=== PATIENT | female | born 1985 | race Caucasian/White ===

== ENCOUNTER 2019-03-21 03:38 | Inpatient (IN) | payer MEDICARE, OTHER ==
[~2019-03-21] VITALS: Ht 160 cm; Wt 96.3 kg
[~2019-03-21 03:38] MED LIST: PREN1TAB13 PO
[2019-03-21 19:53] VITALS: Ht 160 cm; Wt 96.3 kg
[2019-03-21 20:02] VITALS: BP 129/61; PULSE 68; RESP 16
[2019-03-21] MEDS ORDERED: FENTAnyl 50 MCG/ML VIAL IV PRN (21:00)
[2019-03-21] MEDS ORDERED: IBUPROFEN 600 MG TAB PO PRN (21:00)
[2019-03-21] MEDS ORDERED: OXYCODONE/ASPIRIN (4.88/325) TAB PO PRN (21:00)
[2019-03-21] MEDS ORDERED: BUTORPHANOL 2 MG INJ IV PRN (21:00)
[2019-03-21] MEDS ORDERED: OXYTOCIN 30 UNITS/LR 500 ML IV SCH ×3 (21:00)
[2019-03-21] MEDS ORDERED: OXYTOCIN 30 UNITS/LR 500 ML IV PRN (21:00)
[2019-03-21] MEDS ORDERED: CARBOPROST 250 MCG INJ IM PRN (21:00)
[2019-03-21] MEDS ORDERED: LIDOCAINE 1% (MPF) 30 ML INJ INJ PRN (21:00)
[2019-03-21] MEDS ORDERED: MISOPROSTOL 200 MCG TAB PR PRN (21:00)
[2019-03-21] MEDS ORDERED: METHYLERGONOVINE 0.2 MG INJ IM PRN (21:00)
[2019-03-21] MEDS ORDERED: NICOTINE (7 MG/24 HR) PATCH TRANSDERM PRN (21:00)
[2019-03-21] MEDS ORDERED: MISOPROSTOL 50 MCG CAPSULE VAG ONE (21:00)
[2019-03-21] MEDS: LACTATED RINGER'S 1,000 ML IV SCH (21:03)
[2019-03-21] MEDS: MISOPROSTOL 50 MCG CAPSULE PO SCH (21:53)
[2019-03-22] MEDS: LACTATED RINGER'S 1,000 ML IV SCH ×3 (00:12→10:02)
[2019-03-22] MEDS ORDERED: MISOPROSTOL 50 MCG CAPSULE PO SCH (01:00)
[2019-03-22] MEDS: MISOPROSTOL 50 MCG CAPSULE PO SCH ×3 (01:54→19:00)
--- NOTE | 2019-03-22 08:31 | PN ---
Date/Time of Note Date/Time of Note DATE: 03/22/19 TIME: 08:29 OB Subjective Subjective Subjective Patient without complaints 129/61 hr 83 h/h 10.4/32.4 sve 4/50/-1 mid/med electronic monitor: Category 2 140s/moderate variability/positive accelerations/intermittent variable decelerations Newberg every 3 minutes IOL- Continue with induction of labor Suspected rupture of membranes Bower score 7patient received a miso last ~ 0200 Monitor for labor dystocia Start Pitocin in 4 hours prn Anesthesia upon patient request MAURO DÍAZ MD Mar 22, 2019 08:31
[2019-03-22] MEDS ORDERED: FERROUS SULFATE (EC) 325 MG TAB PO ONE (09:00)
[2019-03-22] MEDS ORDERED: OXYTOCIN 30 UNITS/LR 500 ML IV SCH (13:19)
--- NOTE | 2019-03-22 13:19 | LDN ---
Date/Time of Note Date/Time of Note DATE: 03/22/19 TIME: 13:18 Delivery Summary Spontaneous vaginal delivery of a viable term female in OA presentation. Nuchal cord x 2 easily reduced. Body cord x 1 reduced. Mouth and nares bulb suctioned. Cord clamped x2 and divided between after one minute. Infant placed on mother's abdomen. Cord blood collected. Placenta delivered spontaneously, intact with three vessel cord. Perineum inspected and no lacerations were noted. Hemostasis noted. Fundus firm. The cervix was intact. weight 3450 g Apgars 8/9 Estimated blood loss 400 ml MAURO DÍAZ MD Mar 22, 2019 13:19
[2019-03-22] MEDS ORDERED: OXYTOCIN 30 UNITS/LR 500 ML IV PRN (13:30)
[2019-03-22] MEDS ORDERED: LANOLIN HPA 1 PKT TOP PRN (13:30)
[2019-03-22] MEDS ORDERED: MISOPROSTOL 200 MCG TAB PR PRN (13:30)
[2019-03-22] MEDS ORDERED: NACL 0.9% 3 ML SYG IV SCH (13:30)
[2019-03-22] MEDS ORDERED: ACETAMINOPHEN 325 MG TAB PO PRN (13:30)
[2019-03-22] MEDS ORDERED: CARBOPROST 250 MCG INJ IM PRN (13:30)
[2019-03-22] MEDS ORDERED: BENZOCAINE 20% 56 ML SPRAY TOP PRN ×2 (13:30)
[2019-03-22] MEDS ORDERED: MAGNESIUM HYDROXIDE 30ML CUP PO PRN (13:30)
[2019-03-22] MEDS ORDERED: ONDANSETRON 4 MG INJ IV PRN (13:30)
[2019-03-22] MEDS ORDERED: HYDROCODONE/APAP (5/325) TAB PO PRN (13:30)
[2019-03-22] MEDS ORDERED: ZOLPIDEM 5 MG TAB PO PRN (13:30)
[2019-03-22] MEDS ORDERED: WITCH HAZEL/GLYCERIN PAD PR PRN (13:30)
[2019-03-22] MEDS ORDERED: METHYLERGONOVINE 0.2 MG INJ IM PRN (13:30)
[2019-03-22] MEDS ORDERED: DIPHENHYDRAMINE 25 MG CAP PO PRN (13:30)
[2019-03-22 14:45] VITALS: BP 127/63; PULSE 59; RESP 17
[2019-03-22 15:45] VITALS: BP 139/58; PULSE 64; RESP 18
[2019-03-22 16:45] VITALS: BP 119/58; PULSE 68; RESP 18
[2019-03-22] MEDS: IBUPROFEN 600 MG TAB PO SCH ×2 (17:22→23:37)
[2019-03-22 20:00] VITALS: BP 136/60; PULSE 66; RESP 18
[2019-03-22 23:56] VITALS: BP 102/54; PULSE 62; RESP 18
[2019-03-23] MEDS: LACTATED RINGER'S 1,000 ML IV SCH ×3 (03:34→20:51)
[2019-03-23 04:00] VITALS: BP 122/55; PULSE 57; RESP 18
[2019-03-23] MEDS: IBUPROFEN 600 MG TAB PO SCH ×4 (05:34→19:29)
[2019-03-23 08:00] VITALS: BP 123/57; PULSE 65; RESP 18
[2019-03-23] MEDS: SENNA/DOCUSATE NA (8.6MG/50MG) TAB PO PRN (08:49)
[2019-03-23 12:00] VITALS: BP 114/54; PULSE 65; RESP 16
[2019-03-23 18:15] VITALS: BP 124/58; PULSE 65; RESP 18
--- NOTE | 2019-03-23 19:10 | PN ---
Date/Time of Note Date/Time of Note DATE: 03/23/19 TIME: 19:09 OB Subjective Subjective Subjective PPD# 1 Patient is doing well. She denies nausea, vomiting, shortness of breath, chest pain, headache. She has been ambulating without difficulty, tolerating regular diet. Pain is well controlled on current medications OB Objective Objective Objective VS - Last 72 Hours, by Label Date Temp Pulse Resp B/P (MAP) Pulse Ox O2 O2 Flow FiO2 Time Delivery Rate 03/23/19 98.1 65 18 124/58 18:15 (80) 03/23/19 98.2 65 16 114/54 Room Air 12:00 (74) 03/23/19 97.9 65 18 123/57 Room Air 08:00 (79) 03/23/19 98.2 57 18 122/55 Room Air 04:00 (77) 03/22/19 97.7 62 18 102/54 Room Air 23:56 (70) 03/22/19 98.3 66 18 136/60 Room Air 20:00 (85) 03/22/19 98.3 68 18 119/58 Room Air 16:45 (78) 03/22/19 98.3 64 18 139/58 Room Air 15:45 (85) 03/22/19 98.7 59 17 127/63 Room Air 14:45 (84) 03/21/19 98.5 68 16 129/61 Room Air 20:02 (83) General: AAO X 3, comfortable, NAD, appropriate mood and affect. ABD: +BS. Soft, non-tender. Uterus 2 cm below umbilicus Flank: No CVA tenderness (B/L) LE: Mild edema. No clubbing, cyanosis, thigh or calf tenderness (B/L). Homans 'sign is negative OB Assessment/Plan Other plan: 33 years old -0-1-4 s/p normal vaginal delivery at 40 weeks and 3 days. PPD#1 - AF, VSS - Baby is doing well, at bed side. She is bonding well - Contraception methods with R/B/A/FR discussed - Continue care - Discharge home tomorrow - Rx and instruction given - Follow up in 2 and 6 weeks at clinic JEAN KAM Mar 23, 2019 19:10
[2019-03-23 20:00] VITALS: BP 129/69; PULSE 67; RESP 16
[2019-03-24] MEDS: SENNA/DOCUSATE NA (8.6MG/50MG) TAB PO PRN ×2 (00:55→09:15)
[2019-03-24 04:00] VITALS: BP 99/56; PULSE 65; RESP 18
[2019-03-24] MEDS: LACTATED RINGER'S 1,000 ML IV SCH (04:51)
[2019-03-24] MEDS: IBUPROFEN 600 MG TAB PO SCH ×3 (06:00→09:15)
[2019-03-24 08:00] VITALS: BP 122/68; PULSE 56; RESP 18
[2019-03-24] MEDS ORDERED: MEASLES,MUMPS,RUBELLA VACCINE INJ SC* ONE (09:00)
[2019-03-24] MEDS ORDERED: DIPHTH/TET/ACEL PERTUSS (ADULT) 0.5 ML VIAL IM* ONE (09:00)
--- NOTE | 2019-03-24 13:11 | HP ---
Date/Time of Note Date/Time of Note DATE: 03/24/19 TIME: 13:11 OB - History Hx of Present Free Text/Dictation updated h&p unchanged Past Family/Social History * Past Medical, Surgical, Family and Obstetric Histories reviewed from chart. OB Admission Exam Vital Signs Vital Signs Vital Signs Date Temp Pulse Resp B/P (MAP) Pulse Ox O2 O2 Flow FiO2 Time Delivery Rate 03/24/19 98.0 56 18 122/68 Room Air 08:00 (86) Last 72 hours Lab Results CBC & BMP 03/21/19 20:30 03/23/19 07:50 MAURO DÍAZ MD Mar 24, 2019 13:11
--- NOTE | 2019-03-24 13:17 | DS ---
Date/Time of Note Date/Time of Note DATE: 03/24/19 TIME: 13:16 Obstetrical Discharge Record Final Diagnosis Final Diagnosis: Term delivered Other Final Diagnosis 33 years old -0-1-4 s/p normal vaginal delivery at 40 weeks and 3 days. PPD#2. course this was unremarkable. She is ambulating and tolerating regular diet. She is voiding without difficulty. She had bowel movement. Pain is controlled on current medication - AF, VSS - Baby is doing well, at bed side. She is bonding well - Contraception methods with R/B/A/FR discussed - Continue care - Discharge home - Rx and instruction given - Follow up in 2 and 6 weeks at clinic Vaginal Delivery Obstetrical Delivery: Spontaneous Complications Induction: Yes (Postdate) Condition on Discharge Physical Assessment Last Vitals: v Vital Signs Date Temp Pulse Resp B/P (MAP) Pulse Ox O2 O2 Flow FiO2 Time Delivery Rate 03/24/19 98.0 56 18 122/68 Room Air 08:00 (86) Voiding: Yes Bowel Movement: Yes Breast: Soft, non-tender Fundus: Firm Calf Tenderness: No Patient Condition: Stable JEAN KAM Mar 24, 2019 13:17
--- NOTE | 2019-03-24 13:21 | HP ---
Date/Time of Note Date/Time of Note DATE: 03/24/19 TIME: 13:18 OB - History Hx of Present Free Text/Dictation Late entry note. Patient admitted on 03/22/2019 33 years old -0-1-4 with single intrauterine at 40 weeks and 3 days complaining of uterine contractions. She states good movement. She denies nausea, vomiting, shortness of breath, chest pain, headache, visual changes, vaginal bleeding or LOF. Chief Complaint: uterine contractions Estimated Due Date: Mar 19, 2019 : 6 Para: 4 Spontaneous : 1 Therapeutic : 0 Care: Good Care Ultrasounds: Normal mid trimester US Obstetrical Complications: None Medical Complications: None Past Family/Social History * Past Medical, Surgical, Family and Obstetric Histories reviewed from chart. OB Admission Exam Vital Signs Vital Signs Vital Signs Date Temp Pulse Resp B/P (MAP) Pulse Ox O2 O2 Flow FiO2 Time Delivery Rate 03/24/19 98.0 56 18 122/68 Room Air 08:00 (86) Physical Exam HEENT: WNL Heart: Rhythm Normal Lungs: Clear Abdomen: WNL Extremities: Normal Cervical Dilatation: 2cm Effacement: 50% Station: -3 Membranes: Intact Heart Rate: 130's Accelerations: Accelerations Present Decelerations: No Decelerations Varibility: Moderate Contractions on Admission: 6-10 Minutes Apart Intensity: Mild Last 72 hours Lab Results CBC & BMP 03/21/19 20:30 03/23/19 07:50 OB Assessment/Plan Other plan: 33 years old -0-1-4 at 40 weeks and 3 days -FHR: No sign of metabolic acidosis- Category I -Continuous EFM, toco -CBC, blood type and screen -Analgesia options with R/B/A discussed in detail with patient -Epidural per patient request -Please see the orders Admission, procedures, expectations, risks and possible complications have been discussed in detail with the patient. Risk of vaginal delivery including but not limited to bleeding, infection, cervical laceration, placental retention, injury to fetus, blood transfusion, blood transfusion related infection, risk of anesthesia, adhesion, cervical laceration, episiotomy/laceration, possible delivery with risk of bleeding, infection, injury to other organs (bowel, bladder, ureter, vessels, nerves), injury to fetus, blood transfusion, blood transfusion related infection, risk of anesthesia, scar and hernia formation, needs for future , removal of uterus or any other indicated surgery discussed with the patient. She expressed understanding and repeats the risks. All of her questions were answered. She signed the informed consent. PHYSICIAN'S VERIFICATION OF INFORMED CONSENT The patient was counseled regarding the procedure, its indications, risks, potential complications and alternatives and any questions were answered. Consent was obtained. PLANNED PROCEDURE/TREATMENT: Vaginal delivery, episiotomy, repair of laceration possible delivery JEAN KAM Mar 24, 2019 13:20
--- NOTE | 2019-03-25 20:55 | DELSUM ---
Delivery Summary A-C Datetime Report Generated by CPN: 03/25/2019 17:34 DELIVERY PERSONNEL Sewer Line Repairer: Duvo, Savanna MATERNAL INFORMATION Delivery Anesthesia: None Medications in Delivery: pitocin Delivery QBL (ml): 400 Placenta Cultured: No Maternal Complications: Other Other Maternal Complications: Patient is a current every day smoker, advanced maternal age, and has anemia. LABOR SUMMARY EDC: 03/19/2019 00:00 No. Babies in Womb: 1 Attempted: No Labor Anesthesia: IV Sedation LABOR INFORMATION Reason for Induction: Other Reason for Induction- Other: Elective, Postdates Onset of Labor: 03/21/2019 18:00 Complete Dilatation: 03/22/2019 12:58 Cervical Ripening Agents: Cytotec @ 50 Group B Beta Strep: Negative Antibiotics # of Doses: 0 Steroids Given: None Reason Steroids Not Administered: Not Applicable MEMBRANES Membranes Rupture Method: Artificial Rupture of Membranes: 03/22/2019 08:00 Length of Rupture (hr): 5.13 Amniotic Fluid Color: Clear Amniotic Fluid Amount: None Amniotic Fluid Odor: Normal STAGES OF LABOR Stage 1 hr: 18 Stage 1 min: 58 Stage 2 hr: 0 Stage 2 min: 10 Stage 3 hr: 0 Stage 3 min: 5 Total Time in Labor hr: 19 Total Time in Labor min: 13 VAGINAL DELIVERY Episiotomy: None Laceration Extension: N/A Laceration Type: None Laceration Repair: No Initial Vag Sponge Count: 10 Final Vag Sponge Count: 10 Initial Vag Sharps Count: 1 Final Vag Sharps Count: 1 Sponge Count Correct: Yes; Vaginal Sweep Performed Sharps Count Correct: Yes BABY A INFORMATION Delivery Date/Time: 03/22/2019 13:08 Method of Delivery: Vaginal Born in Route : No : N/A Forceps: N/A Vacuum Extraction: N/A Shoulder Dystocia : No SHOULDER DYSTOCIA BABY A Infant Delivery Date/Time: 03/22/2019 13:08 PRESENTATION/POSITION BABY A Presentation: Cephalic Cephalic Presentation: Vertex Vertex Position: Left Occipital Anterior Breech Presentation: N/A PLACENTA INFORMATION BABY A Placenta Delivery Time : 03/22/2019 13:13 Placenta Method of Delivery: Spontaneous Placenta Status: Delivered SCORES BABY A Heart Rate 1 min: >100 bpm Resp Effort 1 min: Good Cry Reflex Irritability 1 min: Cough/Sneeze/Pulls Away Muscle Tone 1 min: Active Motion Color 1 min: Blue/Pale Resuscitation Effort 1 min: Tactile Stimulation SCORE 1 MIN: 8 Heart Rate 5 min: >100 bpm Resp Effort 5 min: Good Cry Reflex Irritability 5 min: Cough/Sneeze/Pulls Away Muscle Tone 5 min: Active Motion Color 5 min: Body Inez, Extremit Blue SCORE 5 MIN: 9 INFANT INFORMATION BABY A Gestational Age at Delivery: 40.3 Gestational Status: Full Term- 39- 40.6 Weeks Outcome : Liveborn, with signs of life Infant Condition : Stable Infant Sex: Female IDENTIFICATION/MEDS BABY A ID Band Number: [id number] ID Band Location: Right Leg; Left Arm Sensor Applied: Yes Sensor Number: [id number] Sensor Location : Cord Clamp WEIGHT/LENGTH BABY A Infant Birthweight (gm): 3440 Infant Weight (lb): 7 Infant Weight (oz): 9 Infant Length (in): 20.00 Infant Length (cm): 50.80 CORD INFORMATION BABY A No. Cord Vessels: 3 Nuchal Cord : Around Neck x2, Loose Nuchal Cord- Other: AROUND BODY X1 Cord Blood Taken: Yes Infant Suction: Mouth; Nose ASSESSMENT BABY A Complications: Multiple Variable Decels Physical Findings at Delivery: Within Normal Limits Infant Respirations: Appears Normal Credit Office Manager/ALS Called : No Infant Care By: ROSA ALBRIGHTC Transferred To: Remains with Mother
== END 2019-03-24 15:48 | disposition home or self-care (01) | DRG 807 ==
LOC: L-D 19:28 → EDSTATUS 20:00 → PP1 03-22 14:45
PROVIDERS: ADMIT Obstetrics & Gynecology; ATTEND Obstetrics & Gynecology
PROC: 10E0XZZ Delivery of Products of Conception, External Approach (ICD-10-PCS; principal; 2019-03-22)
PROC: 4A1HXCZ Monitoring of Products of Conception, Cardiac Rate, External Approach (ICD-10-PCS; 2019-03-22)
DX: O76 Abnormality in fetal heart rate and rhythm complicating labor and delivery (principal); Z37.0 Single live birth; O69.81X0 Labor and delivery complicated by cord around neck, without compression, not applicable or unspecified; O69.2XX0 Labor and delivery complicated by other cord entanglement, with compression, not applicable or unspecified; O48.0 Post-term pregnancy; Z3A.40 40 weeks gestation of pregnancy
CPT/HCPCS: 76815; 80307; 85025; 85610; 85730; 86592; 86850; 86900; 86901; 87340; J0595; J2590; J7120